=== PATIENT | male | born 1950 | race Caucasian/White ===

== ENCOUNTER → 2017-03-23 | Outpatient (CLI) | payer MEDICARE ==
[~2017-03-23] MED LIST: ASCO500T8 PO; CALC1CAP8 PO; FINA5TAB4 PO; GARL400T5 PO; LISI1TAB3 PO; MULT-658 PO; OMEG1CAP6 PO; PUMP160C2 PO; SELE200T10 PO; TAMS0.4C2 PO; folic acid PO
[2017-03-23 10:26] LABS: ASPARTATE AMINO TRANSFERASE 22 U/L (15-37); BLOOD UREA NITROGEN 21 mg/dL (7-18)
== END | disposition home or self-care (01) ==
LOC: STAR 09:06
PROVIDERS: ATTEND Student in an Organized Health Care Education/Training Program
DX: Z01.818 Encounter for other preprocedural examination (principal); N40.1 Benign prostatic hyperplasia with lower urinary tract symptoms
CPT/HCPCS: 36415; 80053; 81003; 87086; 93005

== ENCOUNTER 2017-11-13 10:22 | Emergency (ER) | payer MEDICARE ==
[~2017-11-13] VITALS: Ht 175.3 cm; Wt 81.2 kg
[~2017-11-13 10:22] MED LIST changes: +DOCU-131 PO; +POLY17PO5 PO
[2017-11-13 11:09] LABS: MEAN CORPUSCULAR HEMOGLOBIN 30.8 pg (27.5-34.5); MEAN CORPUSCULAR HGB CONC 33.3 g/dL (33.2-36.2); MEAN CORPUSCULAR VOLUME 92.5 fL (81-97); MEAN PLATELET VOLUME 8.5 fL (7.4-10.4); PLATELET COUNT 277 x10^3/uL (130-400); RED BLOOD COUNT 5.12 x10^6/uL (4.38-5.82); RED CELL DISTRIBUTION WIDTH 13.7 % (9.4-14.8)
[2017-11-13 11:22] LABS: ALBUMIN 4.1 g/dL (3.4-5.0); ANION GAP 8 mmol/L (5-15); CALCIUM 8.9 mg/dL (8.5-10.1); CHLORIDE 104 mmol/L (98-107); CREATININE 1.38 mg/dL (0.7-1.3)
[2017-11-13 11:35] LABS: MD YES
[2017-11-13 11:44] LABS: <RBC MORPHOLOGY> NORMAL; LYMPH#(MANUAL) 11.62 x10^3/uL (1-3.4); LYMPHS% (MANUAL) 33 % (22-44); MONOS#(MANUAL) 1.76 x10^3/uL (0.3-2.7); MONOS% (MANUAL) 5 % (2-9); REACTIVE LYMPHS % (MANUAL) 27 % (0-0); SEG#(MANUAL) 12.32 x10^3/uL (1.8-6.8); SEGS% (MANUAL) 35 % (42-75)
[2017-11-13 11:45] LABS: <PLATELET ESTIMATE> ADEQUATE; <PLT MORPHOLOGY> NORMAL PLT MORPH
[2017-11-13] MEDS ORDERED: PRED20TA PO (12:01)
[2017-11-13 12:02] VITALS: BP 133/75
[2017-11-13] MEDS ORDERED: hydrOXyzine 50MG TABLET ONE (12:16)
[2017-11-13 12:38] LABS: ALBUMIN 4.1 g/dL (3.4-5.0); BILIRUBIN,TOTAL 0.7 mg/dL (0.2-1.0); TOTAL PROTEIN 7.2 g/dL (6.4-8.2)
[2017-11-13 12:45] LABS: BILIRUBIN, DIRECT 0.1 mg/dL (0.1-0.2); BILIRUBIN,INDIRECT 0.6 mg/dL (0.0-2.0)
[2017-11-13 13:37] LABS: HCT (SEDRATE) 47.4 % (39.2-51.8)
== END 2017-11-13 14:21 | disposition home or self-care (01) ==
LOC: ED 14:15
DX: R21 Rash and other nonspecific skin eruption (principal); L29.9 Pruritus, unspecified; Z87.891 Personal history of nicotine dependence
CPT/HCPCS: 36415; 80048; 80076; 82040; 85025; 85651; 99284; Q0177

== ENCOUNTER 2017-11-21 11:16 | Emergency (ER) | payer MEDICARE ==
[~2017-11-21] VITALS: Ht 175.3 cm; Wt 80.4 kg
[~2017-11-21 11:16] MED LIST changes: +PRED20TA PO
[2017-11-21 11:22] VITALS: BP 133/73
[2017-11-21] MEDS ORDERED: DIPH,PERTUSS(ACELL),TET VAC/PF 0.5 ML IM-VACC ONE ×2 (11:56→12:00)
[2017-11-21] MEDS ORDERED: LIDOCAINE-MPF 2% ,5ML ONE (11:57)
[2017-11-21] MEDS ORDERED: LIDOCAINE 2%, 20ML SQ ONE (12:00)
[2017-11-21] MEDS ORDERED: BACITRACIN ZINC OINT 500U/GM, 0.9 GM ONE (12:59)
== END 2017-11-21 13:06 | disposition home or self-care (01) ==
LOC: ED 11:31
DX: S61.011A Laceration without foreign body of right thumb without damage to nail, initial encounter (principal); Z88.5 Allergy status to narcotic agent; W26.8XXA Contact with other sharp object(s), not elsewhere classified, initial encounter; Y93.89 Activity, other specified; Y92.098 Other place in other non-institutional residence as the place of occurrence of the external cause; Y99.8 Other external cause status
CPT/HCPCS: 12042; 73130; 90471; 90715; 99284; J3490; 96372

== ENCOUNTER → 2018-08-21 | Outpatient (CLI) | payer MEDICARE ==
[~2018-08-21] MED LIST changes: -GARL400T5 PO; +GARL400T8 PO; +OMNIPAQUE 350 MG/ML, 100ML BOTTLE ONE
== END | disposition home or self-care (01) ==
LOC: CFH 07:17
PROVIDERS: ATTEND Internal Medicine Hematology & Oncology
DX: C91.10 Chronic lymphocytic leukemia of B-cell type not having achieved remission (principal); J43.2 Centrilobular emphysema; J84.10 Pulmonary fibrosis, unspecified; J35.1 Hypertrophy of tonsils; N20.0 Calculus of kidney; N28.1 Cyst of kidney, acquired; M47.816 Spondylosis without myelopathy or radiculopathy, lumbar region; M47.814 Spondylosis without myelopathy or radiculopathy, thoracic region; K40.90 Unilateral inguinal hernia, without obstruction or gangrene, not specified as recurrent; I70.0 Atherosclerosis of aorta; I87.8 Other specified disorders of veins; R59.0 Localized enlarged lymph nodes; Z87.891 Personal history of nicotine dependence
CPT/HCPCS: 70491; 71260; 74177; Q9967

== ENCOUNTER 2018-09-07 12:18 | Outpatient (CLI) | payer MEDICARE ==
[~2018-09-07 12:18] MED LIST changes: +LIDOCAINE 1%, 10ML ONE; -OMNIPAQUE 350 MG/ML, 100ML BOTTLE ONE
== END 2018-09-07 23:59 | disposition home or self-care (01) ==
LOC: RAD 12:18
PROVIDERS: ATTEND Internal Medicine Hematology & Oncology
DX: C91.10 Chronic lymphocytic leukemia of B-cell type not having achieved remission (principal)
CPT/HCPCS: 10005; 38505; 88173; 88184; 88185

== ENCOUNTER 2021-01-19 17:09 | Emergency (ER) | payer MEDICARE ==
[~2021-01-19] VITALS: Ht 175.3 cm; Wt 80.2 kg
[~2021-01-19 17:09] MED LIST changes: +GARL400T12 PO; -GARL400T8 PO; -LIDOCAINE 1%, 10ML ONE; +LISI1TAB23 PO; -LISI1TAB3 PO
[2021-01-19 17:49] LABS: MEAN CORPUSCULAR HEMOGLOBIN 30.7 pg (27.5-34.5); MEAN PLATELET VOLUME 8.4 fL (7.4-10.4); PLATELET COUNT 246 x10^3/uL (130-400); RED CELL DISTRIBUTION WIDTH 13.9 % (9.4-14.8)
[2021-01-19 17:57] LABS: ALANINE AMINOTRANSFERASE 30 U/L (12-78); ALBUMIN 4.2 g/dL (3.4-5.0); ANION GAP 9 mmol/L (5-15); CALCIUM 8.9 mg/dL (8.5-10.1); CHLORIDE 102 mmol/L (98-107); CREATININE 1.47 mg/dL (0.7-1.3)
[2021-01-19 18:00] LABS: ALKALINE PHOSPHATASE 73 U/L (45-117); BILIRUBIN,TOTAL 0.4 mg/dL (0.2-1.0); TOTAL PROTEIN 7.2 g/dL (6.4-8.2)
[2021-01-19 18:30] LABS: EOS#(MANUAL) 0.48 x10^3/uL (0.0-0.4); EOS% (MANUAL) 1 % (1-7); LYMPH#(MANUAL) 34.15 x10^3/uL (1-3.4); LYMPHS% (MANUAL) 71 % (22-44); MONOS#(MANUAL) 1.92 x10^3/uL (0.3-2.7); MONOS% (MANUAL) 4 % (2-9); REACTIVE LYMPHS # (MANUAL) 0.96 x10^3/uL (0-0); REACTIVE LYMPHS % (MANUAL) 2 % (0-0); SEG#(MANUAL) 8.66 x10^3/uL (1.8-6.8); SEGS% (MANUAL) 18 % (42-75)
[2021-01-19 18:36] LABS: <PLATELET ESTIMATE> ADEQUATE; <PLT MORPHOLOGY> NORMAL PLT MORPH; <RBC MORPHOLOGY> NORMAL; OTHER CELLS # (MANUAL) 1.92 x10^3/uL (0-0); OTHER CELLS % (MANUAL) 4 % (0-0)
[2021-01-19 18:41] LABS: MICROSCOPIC INDICATED
--- NOTE | 2021-01-19 18:52 | NUR ---
REPORT TO LIBBY YEE.
--- NOTE | 2021-01-19 18:52 | NUR ---
REPORT RECIEVED FROM ESAU SOUZA
--- NOTE | 2021-01-19 19:05 | NUR ---
PT LAYING IN BED, A/OX3, ALL NEEDS IN REACH, CALL LIGHT IN REACH, NAD AT THIS TIME
[2021-01-19] MEDS ORDERED: KETOROLAC 60 MG/2 ML ONE (20:11)
[2021-01-19] MEDS ORDERED: OXYcodone/APAP 5/325MG TABLET ONE (20:12)
[2021-01-19] MEDS ORDERED: KETOROLAC 30 MG/1 ML IM ONE (20:30)
[2021-01-19] MEDS ORDERED: OXYcodone/APAP 5/325MG TABLET PO ONE (20:30)
[2021-01-19 21:01] VITALS: BP 123/78
--- NOTE | 2021-01-19 21:03 | NUR ---
THIS RN DISCONTINUED PTS ODONNELL CATHETER, PT TOLERATED REMOVAL WELL, NO BLOOD OR TRAUMA NOTED ON PTS PENIS WHEN THIS RN DISCONTINUED ODONNELL, PT NAD, PT DISCHARGED WITH SCRIPTS, DISCUSSED POC WITH PT AND PT AGREED TO POC AND UNDERSTOOD POC
== END 2021-01-19 21:06 | disposition home or self-care (01) ==
LOC: ED 21:02
DX: N13.2 Hydronephrosis with renal and ureteral calculous obstruction (principal); I10 Essential (primary) hypertension; Z87.891 Personal history of nicotine dependence
CPT/HCPCS: 36415; 51702; 74176; 80053; 81001; 85025; 99284; J1885